=== PATIENT | female | born 1965 | race Caucasian/White ===

== ENCOUNTER 2016-06-26 09:52 | Emergency (ER) | payer SELFPAY ==
[~2016-06-26] VITALS: Wt 82.0 kg
[2016-06-26] MEDS ORDERED: KETOROLAC 30 MG INJ IM STA (10:36)
--- NOTE | 2016-06-26 10:47 | ERD ---
ER Documentation Chief Complaint Date/Time DATE: 06/26/16 TIME: 10:40 Chief Complaint l. sided dickerson rad down lue since yest and nausea, neg neuro def in triage HPI 50-year-old female accompanied by her daughter is complaining of left-sided headache since yesterday. She has nausea but no vomiting. 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 Patient became very upset when she came home, and developed a headache shortly after. Patient stated the pain is on the left side of her head down to her left shoulder. She had headaches before but never this bad. Denies photophobia. Denies one-sided numbness, tingling or weakness. Denies suicidal or homicidal ideations. ROS All systems reviewed and are negative except as per history of present illness. Medications Home Meds Active Scripts Acetaminophen/Caffeine (Excedrin Tension Headache Cplt) 1 Each Tablet, 1 EACH PO Q4 Y for HEADACHE, #30 TAB Prov:LAUREN WALL. MEDICAL BILLING COORDINATOR 06/26/16 Allergies Allergies: Coded Allergies: No Known Allergy (Unverified , 06/26/16) PMhx/Soc Medical and Surgical Hx: pt denies Medical Hx, pt denies Surgical Hx Hx Alcohol Use: Yes Hx Substance Use: No Hx Tobacco Use: No Physical Exam Vitals Vital Signs Date Time Temp Pulse Resp B/P Pulse Ox O2 Delivery O2 Flow Rate FiO2 06/26/16 10:06 98.6 65 20 136/80 99 Physical Exam General impression: Well-developed, well-nourished. Alert, oriented, in no acute distress Head: Normocephalic, atraumatic. Eyes: PERRL, EOM normal. Conjunctiva not injected. ENT: External canals clear. TM's pearly bowman. Nasal mucosa, oral mucosa and oropharynx are normal. Neck: Supple. Left sternocleidomastoid and upper trapezius muscle spasm and tenderness. No lymphadenopathy. No nuchal rigidity. Respiration: Normal respiratory effort. Lungs clear to auscultate bilaterally. No wheezes, rales or rhonchi. Cardiovascular: Regular rate and rhythm. No murmurs or extra heart sounds. Abdomen: Abdomen normal to inspection. Nontender. No masses or organomegaly. Bowel sounds normal. Neuro: Mental status normal, speech normal. NON [employer] II-XII intact. Normal sensation and strength in all 4 extremities. No focal weakness noted. Skin: Normal turgor. No rash or lesions. Psych: Normal mood and affect. Results 24 hrs Current Medications Medications (Trade) Dose Ordered Sig/Jeyson Route PRN Reason Start Time Stop Time Status Last Admin Dose Admin Ketorolac Tromethamine (Toradol) 30 mg ONCE STAT IM 06/26/16 10:36 06/26/16 10:39 DC 06/26/16 10:52 Metoclopramide HCl (Reglan) 10 mg ONCE ONCE IM 06/26/16 11:00 06/26/16 11:01 DC 06/26/16 10:50 Diphenhydramine HCl (Benadryl Liquid Cup) 25 mg ONCE ONCE PO 06/26/16 11:00 06/26/16 11:01 DC 06/26/16 10:49 Procedures/MDM Toradol, Reglan, and Benadryl given to the patient in the ED. Patient's headache improved vastly after the medication. Low suspicion for intracranial hemorrhage or tumor. Low suspicion for stroke. Patient's headache likely due to tension headache. Patient appears well, stable for discharge and outpatient management. Medical decision making shared with patient and family. Education provided to patient and family. Patient and family expressed understanding of the plan. Medications on discharge: Excedrin tension headache. Follow-up: Primary care provider in 2-3 days or return to ED if worse. LAUREN WALL NP Jun 26, 2016 10:47
[2016-06-26] MEDS ORDERED: DIPHENHYDRAMINE 2.5 MG/ML 5ML CUP PO ONE (11:00)
[2016-06-26] MEDS ORDERED: METOCLOPRAMIDE 10 MG INJ IM ONE (11:00)
[2016-06-26] MEDS ORDERED: ACET1TAB16 PO (11:49)
== END 2016-06-26 12:00 | disposition home or self-care (01) ==
LOC: FTE 09:52
DX: R51 Headache (principal)
CPT/HCPCS: 96372; 99284; J1885; J2765